=== PATIENT | male | born 1960 | race Caucasian/White ===

== ENCOUNTER 2020-08-01 21:11 | Inpatient (IN) | payer MEDICARE, MEDICAID, SELFPAY ==
--- NOTE | ~2020-08-01 | US_ITS ---
EXAMINATION: US pelvic complete DATE: 08/05/2020 08:29 INDICATION: Suprapubic swelling after catheter removal. TECHNIQUE: Multiple grayscale and Doppler ultrasound images of the pelvis were obtained. COMPARISON: CT abdomen and pelvis 08/01/2020 FINDINGS: The bladder is markedly distended. There is no abnormal mass. The anterior body wall is nor mal. IMPRESSION: 1. Markedly distended bladder. Reviewed, dictated and finalized at location B. AL NURSE
--- NOTE | ~2020-08-01 | XR_ITS ---
EXAMINATION: XR chest 1V portable DATE: 08/02/2020 00:01 INDICATION: Shortness of breath. TECHNIQUE: A single frontal view of the chest was obtained. COMPARISON: Chest 2 views 09/16/2016, chest CT 10/04/2016 FINDINGS: The lungs are hyperexpanded, consistent with emphysema. There are chronic nodules and airsp henrry opacities in the upper lobes, consistent with granulomatous disease. There are worsened airspace opacities in left mid and upper lung zones. No pleural effusion or pneumothorax. The heart size is no rmal. Calcified mediastinal lymph nodes are consistent with old granulomatous disease. There are old right-sided rib fractures. IMPRESSION: 1. Worsened airspace opacities in left mid and upper lung zones, consistent with pneumonia. 2. Emphysema. Reviewed, dictated and finalized at location A. GENERATOR OPERATOR IMPRESSION: 1. Worsened airspace opacities in left mid and upper lung zones, consistent wit h pneumonia. 2. Emphysema.
--- NOTE | ~2020-08-01 | CT_ITS ---
EXAMINATION: CT abdomen pelvis wo con DATE: 08/01/2020 23:24 INDICATION: Abdominal pain. TECHNIQUE: Computed tomography (CT) of the abdomen and pelvis was performed without intravenous contr ast. Automated exposure control and iterative reconstruction technique were employed. The dose-length product was 187.10 mGy-cm. COMPARISON: CT abdomen and pelvis 03/28/2008, chest CT 10/04/2016 FINDINGS: The visualized portions of the lung bases demonstrate emphysema. There are centrilobular no dules and tree-in-bud opacities in the right middle lobe, and lower lobes. There are airspace opaciti es and nodules in lingula. These findings are consistent with pneumonia. No pleural effusion. The hea rt size is normal. No pericardial effusion. There are coronary artery calcifications. The liver, gall bladder, spleen, pancreas, adrenal glands, and kidneys are normal. The bladder is markedly distended. There are no dilated loops of bowel. The appendix is not visualized. There are no pathologically enl arged lymph nodes. There is no free intraperitoneal fluid. There is a benign bone island in left isch ium. There is mild thoracolumbar spondylosis. There is mild chronic height loss of multiple vertebral bodies. IMPRESSION: 1. Multifocal pneumonia. 2. Emphysema. 3. Markedly distended bladder. Reviewed, dictated and finalized at location A. TROPLATER AUTOMATIC
--- NOTE | ~2020-08-01 | CT_ITS ---
EXAMINATION: CTA chest PE protocol DATE: 08/03/2020 10:52 INDICATION: Shortness of breath. TECHNIQUE: Computed tomography angiography (CTA) of the chest was performed with 100 mL Omnipaque-350 intravenous contrast timed to evaluate the pulmonary arteries. Coronal maximum intensity projection 3D-reconstructions were created by the technologist. Automated exposure control and iterative reconst ruction technique were employed. The dose-length product was 353.25 mGy-cm. COMPARISON: Chest CT 10/04/2016 FINDINGS: There is moderate emphysema. Calcified pulmonary nodules and calcified right hilar and medi astinal lymph nodes are consistent with old granulomatous disease. There are airspace and groundglass opacities in left upper lobe. There is a large area of cavitation in left upper lobe with worsening from 10/04/2016. There is a thick-walled cavitary nodule in right upper lobe. There are a few nodules in right upper lobe and right middle lobe. There are nodules and patchy groundglass opacities in the lower lobes. There are patchy airspace opacities in left lower lobe. There are small pleural effusion s. The heart size is normal. There are coronary artery calcifications. No pericardial effusion. The c entral pulmonary arteries are enlarged, consistent with pulmonary arterial hypertension. There is no pulmonary embolus. There is mild thoracic spondylosis. IMPRESSION: 1. No pulmonary embolus. 2. Multifocal pneumonia with worsened large area of chronic cavitation in left upper lobe. 3. Small pleural effusions. 4. Moderate emphysema. Reviewed, dictated and finalized at location B. GRITY MANAGER
--- NOTE | ~2020-08-01 | US_ITS ---
EXAMINATION: US scrotum doppler EXAM DATE: 08/05/2020 08:29 INDICATION: Scrotal swelling TECHNIQUE: Multiple grayscale and Doppler images of the testicles and scrotum were obtained bilateral ly. There is no prior study for comparison. FINDINGS: There is scrotal edema. Right testicle measures 4.8 x 3.1 x 3.1 cm and is morphologically normal. Low resistance Doppler alma w confirmed. The epididymis is unremarkable. Small varicocele. Left testicle measures 4.4 x 3.5 x 2.8 cm and is morphologically normal. Low resistance Doppler flow confirmed. The epididymis is unremarkable. Small left hydrocele. Small varicocele. IMPRESSION: 1. Small left hydrocele. 2. Small bilateral varicoceles. 3. Scrotal edema. Reviewed, dictated and finalized at location A. TRONEURODIAGNOSTIC TECHNOLOGIST
--- NOTE | ~2020-08-01 | US_ITS ---
EXAMINATION: US venous doppler LE RT EXAM DATE: 08/03/2020 10:51 INDICATION: Right leg pain, elevated d-dimer. TECHNIQUE: Multiple grayscale, color flow and Doppler images of the right lower extremity deep venous system were obtained and reviewed. There is no prior study for comparison. FINDINGS: The right common femoral, femoral and profunda veins demonstrate normal color flow, respira tory variation, augmentation and compressibility. Compressibility, color flow confirmed within the r ight popliteal, posterior tibial, peroneal, and greater saphenous veins. IMPRESSION: 1. No right lower extremity deep venous thrombosis. Reviewed, dictated and finalized at location A. NCIAL PROCESSING CLERK
[2020-08-01 23:00] VITALS: BP 132/73; PULSE 90; RESP 18; TEMP 36.6; O2SAT 98
[2020-08-01 23:43] LABS: Add Urine Microscopic? NO; Appearance Urine Clear (Clear); Basophils Absolute Auto 0.04 K/mm3 (0.00-0.10); Basophils Percent Auto 0.2 % (0.0-1.0); Bilirubin Urine Negative (Negative); Blood Urine Negative (Negative); Color Urine Yellow (Yellow); Eosinophils Absolute Auto 0.02 K/mm3 (0.02-0.50); Eosinophils Percent Auto 0.1 % (1.0-6.0); Glucose Urine UA Negative (Negative); Hemoglobin 11.8 g/dL (14.0-18.0); Immature Granulocyte Percent A 0.5 % (0.0-0.0); Ketones Urine Negative (Negative); Leukocyte Esterase Ur Negative (Negative); Lymphocytes Absolute Auto 0.89 K/mm3 (1.10-4.50); Lymphocytes Percent Auto 4.7 % (18.0-42.0); Mean Corpuscular HGB Conc 31.9 g/dL (32.0-36.0); Mean Corpuscular Hemoglobin 31.1 pg (27.0-31.0); Mean Corpuscular Volume 97.4 fL (78.0-102.0); Mean Platelet Volume 9.6 fl (8.7-11.0); Monocytes Absolute Auto 1.82 K/mm3 (0.10-0.90); Monocytes Percent Auto 9.5 % (2.0-11.0); Neutrophils Absolute Auto 16.2 K/mm3 (1.7-7.2); Nitrate Urine Negative (Negative); Platelet Count Result 431 K/mm3 (150-420); Protein Urine Negative (Negative); Red Cell Distribution Width 13.1 % (11.6-14.4); Specific Grav Ur 1.025 (1.010-1.020); White Blood Count 19.1 K/mm3 (4.8-10.8)
[2020-08-01 23:58] LABS: Alanine Aminotransferase 14 U/L (16-63); Albumin Level 2.8 g/dL (3.4-5.0); Alkaline Phosphatase 76 U/L (46-116); Anion Gap 6 mmol/L (8-16); Aspartate Amino Transferase 16 U/L (15-37); Bilirubin,Total 0.3 mg/dL (0.00-1.00); Blood Urea Nitrogen 19 mg/dL (7-18); Calcium 8.9 mg/dL (8.5-10.1); Carbon Dioxide 33 mmol/L (21-32); Chloride 97 mmol/L (98-108); Estimated Glomerular Filt Rate > 60; Glucose 103 mg/dL (70-99); Osmolality Calculated 284 mOsm/kg (285-295); Potassium 3.7 mmol/L (3.5-5.1); Sodium 136 mmol/L (136-145); Total Protein 7.2 g/dL (6.4-8.2)
[2020-08-02] VITALS (7 sets, daily range): BP systolic 90–115; BP diastolic 55–64; PULSE 68–86; RESP 16–18; TEMP 36.6–37.3; O2SAT 92–100; BMI 13.4
[2020-08-02 00:05] LABS: Lactic Acid Reflex 1.1 mmol/L (0.4-2.0)
--- NOTE | 2020-08-02 00:18 | ED.ABDPAIN ---
HPI - Abdominal Pain General Chief Complaint: Abdominal Pain Stated Complaint: Leg swollen can't not pee Source: patient Mode of arrival: ambulatory History of Present Illness HPI narrative: This is a 59-year-old gentleman presents with difficulty with urination patient has a history of BPH symptoms started 1 to 2 days ago and intensified over the last couple of hours. The patient has some suprapubic discomfort with no flank pain currently no fever or chills, is having constipation with no chest pain currently no shortness of breath no nausea or vomiting. Patient has a history of hypertension, COPD is a current smoker. MD elicited complaint: abdominal pain Pertinent past history: constipation Onset (ago): hour(s) Pain Consistency: constant Location: suprapubic Severity: moderate Pain scale (0-10): 6 Quality: fullness Radiation: none Migration to: no migration Exacerbating factors: nothing Relieving factors: nothing Related Data Home Medications Medication Instructions Recorded Confirmed diltiazem HCl 120 mg PO DAILY 08/01/20 08/01/20 ergocalciferol (vitamin D2) 50,000 unit PO MONTHLY 08/01/20 08/01/20 [Vitamin D2] famotidine 20 mg PO DAILY 08/01/20 08/01/20 fluticasone propion-salmeterol 1 ea INHALATION BID 08/01/20 08/01/20 [Advair Diskus] hydrocodone-acetaminophen 1 tablet PO PRN PRN 08/01/20 08/01/20 montelukast 10 mg PO DAILY 08/01/20 08/01/20 omeprazole 20 mg PO DAILY 08/01/20 08/01/20 prednisone 2.5 mg PO DAILY 08/01/20 08/01/20 tamsulosin 0.4 mg PO DAILY 08/01/20 08/01/20 theophylline 400 mg PO DAILY 08/01/20 08/01/20 tiotropium bromide [Spiriva with 1 cap INHALATION DAILY 08/01/20 08/01/20 HandiHaler] Allergies Allergy/AdvReac Type Severity Reaction Status Date / Time No Known Allergies Allergy Verified 08/01/20 23:56 Review of Systems Review of Systems: All systems reviewed & are unremarkable except as noted in HPI and below PMFSH Past Medical History Medical History COPD (chronic obstructive pulmonary disease) HTN (hypertension) Exam Const: General: no acute distress Orientation/consciousness: patient oriented x3 HENMT: Head: normal to inspection Eyes: Conjunctivae: conjunctivae normal Pupils: Equal, round and reactive pupils present EOM: EOMs intact bilaterally Direct Ophthalmoscopy: no photophobia Neck: Neck: normal visual inspection Chest: Chest palpation & inspection: normal inspection of the chest Resp: Effort & Inspection: normal respiratory effort Auscultation: diminished lung sounds Cardio: Rate: regular rate Rhythm: regular rhythm GI: GI Palp: Yes Soft to palpation Auscultation: normal bowel sounds : Other: suprapubic tender Back/Spine/Pelvis: Back: no CVA tenderness Skin: General skin exam: normal color Rashes: no rashes Neuro: General: patient oriented x3, moves all extremities, no meningeal signs and no focal motor deficits Extrem: General: normal to inspection and edema Psych: Mental Status: mental status grossly normal Course Course Emergency Course: reassessment of patient had to place a Fernández since patient had a distended bladder and was a having difficulty passing urine for urinary obstruction /bladder obstruction. MDM - Abdominal Pain Lab Data Result diagrams: 08/01/20 23:26 08/01/20 23:26 Labs: Lab Results 08/01/20 08/01/20 08/01/20 Range/Units 23:26 23:26 23:26 WBC 19.1 H (4.8-10.8) K/mm3 RBC 3.80 L (4.70-6.10) M/mm3 Hgb 11.8 L (14.0-18.0) g/dL Hct 37.0 L (40.0-54.0) % MCV 97.4 (78.0-102.0) fL MCH 31.1 H (27.0-31.0) pg MCHC 31.9 L (32.0-36.0) g/dL RDW 13.1 (11.6-14.4) % Plt Count 431 H (150-420) K/mm3 MPV 9.6 (8.7-11.0) fl Immature Gran % (Auto) 0.5 H (0.0-0.0) % Neut % (Auto) 85.0 H (50.0-70.0) % Lymph % (Auto) 4.7 L (18.0-42.0) % Whitman % (Auto) 9.5 (2.0-11.0) % Eos
[2020-08-02] MEDS: KETOROLAC 30 MG/ML VIAL (*BKC) IV PUSH (00:49)
--- NOTE | 2020-08-02 01:42 | ADMGEN ---
This patient, Thang Paul, was admitted to 2nd Floor Room 208-1. Patient oriented to hospital policies and general routines including ID bracelet, bed and alarms, visiting hours, pain management, procedures, bathroom and other care routines, personal items, smoking policy, room service/diet, and visiting hours. Information on how to activate the Rapid Response Team has been discussed. Patient are encouraged to report perceived risks to care and to ask questions if they do not understand what they are told or what they should do.
[2020-08-02] MEDS: HYDROcodone/acetaminophen (*CRX) 10-325 MG TABLET 1 TAB PO ×4 (05:29→21:34)
[2020-08-02 05:35] LABS: Basophils Absolute Auto 0.06 K/mm3 (0.00-0.10); Basophils Percent Auto 0.4 % (0.0-1.0); Eosinophils Absolute Auto 0.07 K/mm3 (0.02-0.50); Eosinophils Percent Auto 0.4 % (1.0-6.0); Hematocrit 31.1 % (40.0-54.0); Hemoglobin 9.8 g/dL (14.0-18.0); Immature Granulocyte Absolute 0.09 K/mm3 (0.00-0.00); Immature Granulocyte Percent A 0.5 % (0.0-0.0); Lymphocytes Absolute Auto 0.83 K/mm3 (1.10-4.50); Mean Corpuscular HGB Conc 31.5 g/dL (32.0-36.0); Mean Corpuscular Hemoglobin 30.5 pg (27.0-31.0); Mean Corpuscular Volume 96.9 fL (78.0-102.0); Mean Platelet Volume 9.1 fl (8.7-11.0); Monocytes Percent Auto 10.9 % (2.0-11.0); Neutrophils Absolute Auto 13.6 K/mm3 (1.7-7.2); Neutrophils Percent Auto 82.8 % (50.0-70.0); Platelet Count Result 348 K/mm3 (150-420); Red Blood Count 3.21 M/mm3 (4.70-6.10); Red Cell Distribution Width 13.1 % (11.6-14.4); White Blood Count 16.5 K/mm3 (4.8-10.8)
[2020-08-02 05:50] LABS: Alanine Aminotransferase 11 U/L (16-63); Albumin Level 2.3 g/dL (3.4-5.0); Alkaline Phosphatase 62 U/L (46-116); Anion Gap 3 mmol/L (8-16); Aspartate Amino Transferase 14 U/L (15-37); Bilirubin,Total 0.2 mg/dL (0.00-1.00); Blood Urea Nitrogen 14 mg/dL (7-18); Calcium 8.4 mg/dL (8.5-10.1); Carbon Dioxide 34 mmol/L (21-32); Chloride 98 mmol/L (98-108); Estimated CRCL calculation 102 ml/min; Estimated Glomerular Filt Rate > 60; Glucose 95 mg/dL (70-99); Magnesium 1.8 mg/dL (1.8-2.4); Osmolality Calculated 280 mOsm/kg (285-295); Potassium 3.4 mmol/L (3.5-5.1); Sodium 135 mmol/L (136-145); Total Protein 5.9 g/dL (6.4-8.2)
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
[2020-08-02] MEDS: POTASSIUM CHLORIDE 20 MEQ TABLET 40 MEQ PO (08:27)
[2020-08-02] MEDS: MONTELUKAST SODIUM 10 MG TABLET PO (08:27)
[2020-08-02] MEDS: TAMSULOSIN HCL 0.4 MG CAPSULE 0.8 MG PO (08:27)
[2020-08-02] MEDS: PANTOPRAZOLE 40 MG TABLET PO (08:27)
[2020-08-02] MEDS: predniSONE 5 MG TABLET PO (08:27)
[2020-08-02] MEDS: THEOPHYLLINE ANHYDROUS 100 MG CAP.ER.24H 400 MG PO (08:28)
[2020-08-02] MEDS: SALMET XINAFT/FLUTIC PROPIN 500 MCG/50 MCG INH CAP 1 PUFF INHALATION ×2 (08:40→16:46)
--- NOTE | 2020-08-02 13:44 | PC.NURSE ---
Anne-Marie CHIEF COUNSEL informed of decreased urine output. Bladder scan and IV fluids ordered.
[2020-08-02] MEDS: SODIUM CHLORIDE 0.9% IV 1,000 ML 100 ML IV CONT ×2 (14:00→23:20)
[2020-08-02 14:47] LABS: Hematocrit 31.6 % (40.0-54.0); Hemoglobin 9.8 g/dL (14.0-18.0); Mean Corpuscular Hemoglobin 30.9 pg (27.0-31.0); Mean Corpuscular Volume 99.7 fL (78.0-102.0); Mean Platelet Volume 9.3 fl (8.7-11.0); Platelet Count Result 362 K/mm3 (150-420); Red Blood Count 3.17 M/mm3 (4.70-6.10); Red Cell Distribution Width 13.1 % (11.6-14.4)
[2020-08-02] MEDS: PHARMACIST COMMUNICATION ORDER 1 EACH XX (15:04)
[2020-08-02 15:09] LABS: BNP 54.7 pg/mL (0-100)
[2020-08-02] MEDS: ENOXAPARIN 40 MG/0.4 ML SYRINGE SUB-Q (16:46)
[2020-08-02] MEDS: SENNA/DOCUSATE SODIUM TABLET 1 TAB PO (21:55)
[2020-08-03] MEDS: HYDROcodone/acetaminophen (*CRX) 10-325 MG TABLET 1 TAB PO ×3 (03:33→21:01)
[2020-08-03] MEDS: ENOXAPARIN 40 MG/0.4 ML SYRINGE SUB-Q ×2 (03:44→16:38)
[2020-08-03] MEDS: LORazepam (*CRX) 0.5 MG TABLET PO ×2 (04:42→21:02)
--- NOTE | 2020-08-03 04:50 | PC.NURSE ---
Patient very anxious, saying he can't breathe. SpO2 @ 95% on O2 @ 2.5 lpm/nc. Color good. Patient has had nurse in his room every 10 minutes for past hour and a half to move him a little this way or that, straighten his blankets or pillow, raise him up in bed, raise the head of his bed, pull gown so it's looser around him and multiple other things. Patient was given PRN [place]ior @ 0333 for complaint of pain 8 on 0-10 scale but says pain is much better now. Patient given PRN Ativan for anxiety. Call light in reach.
[2020-08-03 05:33] LABS: Hematocrit 30.7 % (40.0-54.0); Hemoglobin 9.3 g/dL (14.0-18.0); Mean Corpuscular HGB Conc 30.3 g/dL (32.0-36.0); Mean Corpuscular Hemoglobin 30.6 pg (27.0-31.0); Mean Platelet Volume 9.2 fl (8.7-11.0); Platelet Count Result 350 K/mm3 (150-420); Red Blood Count 3.04 M/mm3 (4.70-6.10); Red Cell Distribution Width 13.2 % (11.6-14.4); White Blood Count 17.1 K/mm3 (4.8-10.8)
[2020-08-03 05:48] LABS: Alanine Aminotransferase 11 U/L (16-63); Alkaline Phosphatase 60 U/L (46-116); Anion Gap 1 mmol/L (8-16); Aspartate Amino Transferase 13 U/L (15-37); Bilirubin,Total 0.2 mg/dL (0.00-1.00); Blood Urea Nitrogen 10 mg/dL (7-18); Carbon Dioxide 36 mmol/L (21-32); Chloride 98 mmol/L (98-108); Estimated CRCL calculation 95 ml/min; Estimated Glomerular Filt Rate > 60; Glucose 90 mg/dL (70-99); Magnesium 1.6 mg/dL (1.8-2.4); Osmolality Calculated 279 mOsm/kg (285-295); Potassium 4.7 mmol/L (3.5-5.1); Sodium 135 mmol/L (136-145); Total Protein 5.5 g/dL (6.4-8.2)
[2020-08-03 07:58] VITALS: TEMP 37.8
[2020-08-03] MEDS: ACETAMINOPHEN 325 MG TABLET 650 MG PO (07:58)
[2020-08-03 08:00] VITALS: BP 132/66; PULSE 82; RESP 20; TEMP 37.8; O2SAT 92
[2020-08-03 08:18] LABS: BNP 159 pg/mL (0-100)
[2020-08-03] MEDS: MAGNESIUM SULF 4 GM/WATER100ML 4 GM/100 ML BAG IVPB (08:19)
[2020-08-03] MEDS: THEOPHYLLINE ANHYDROUS 100 MG CAP.ER.24H 400 MG PO (08:21)
[2020-08-03] MEDS: TAMSULOSIN HCL 0.4 MG CAPSULE 0.8 MG PO (08:21)
[2020-08-03] MEDS: DOCUSATE SODIUM 100 MG CAPSULE PO (08:22)
[2020-08-03] MEDS: predniSONE 5 MG TABLET PO (08:22)
[2020-08-03] MEDS: POTASSIUM CHLORIDE 20 MEQ TABLET 40 MEQ PO (08:22)
[2020-08-03] MEDS: PANTOPRAZOLE 40 MG TABLET PO (08:22)
[2020-08-03] MEDS: MONTELUKAST SODIUM 10 MG TABLET PO (08:22)
[2020-08-03] MEDS: SALMET XINAFT/FLUTIC PROPIN 500 MCG/50 MCG INH CAP 1 PUFF INHALATION ×2 (08:22→16:40)
[2020-08-03 09:23] LABS: Base Excess ABG 6.5 mmol/L (0-2); HCO3 ABG 33.9 mmol/L (23-29); Oxyhemoglobin 95.2 % (94-100); PCO2 ABG 65.1 mmHg (35-45); PO2 ABG 76.7 mmHg (80-90); Total Hemoglobin 10.4 g/dL; pH ABG 7.33 (7.35-7.45)
[2020-08-03 09:28] LABS: Device NASAL CANNULA; Liters per Minute 2.5 LPM; Modified Allen's Test Pass; Site Drawn LEFT RADIAL
[2020-08-03] MEDS: SODIUM CHLORIDE 0.9% IV 1,000 ML 100 ML IV CONT ×2 (09:40→20:57)
--- NOTE | 2020-08-03 14:38 | P.PN_ITS ---
Progress Note: A&P Assessment and Plan (1) Bladder outflow obstruction: Code(s): N32.0 - Bladder-neck obstruction <Leonor PandeyHAYLIE - Last Filed: 08/03/20 14:56> Status: Acute <Leonor PandeyHAYLIE - Last Filed: 08/03/20 14:56> Assessment and Plan: * patient on Flomax 0.4 increased to 0.8 * conteh placed * CT indicates markedly distended bladder * Will complete future voiding trial <Leonor SamuelJoanna DannieHAYLIE - Last Filed: 08/03/20 14:56> (2) Pneumonia: Qualifiers: Laterality: left Lung location: unspecified part of lung Pneumonia type: due to unspecified organism Qualified Code(s): J18.9 - Pneumonia, unspecified organism <Leonor PandeyHAYLIE - Last Filed: 08/03/20 14:56> Code(s): J18.9 - Pneumonia, unspecified organism <Leonor SamuelHAYLIE Ruiz - Last Filed: 08/03/20 14:56> Status: Acute <Leonor Pandey TYLERXimena - Last Filed: 08/03/20 14:56> Assessment and Plan: * WBCs elevated but improving * Chest x-ray indicates Worsened airspace opacities in left mid and upper lung zones, consistent with pneumonia. * CT indicates multifocal pneumonia with emphysema , CTA indicate worsening pneumonia * Continue Rocephin and azithromycin day 2 <Leonor SamuelHAYLIE Ruiz - Last Filed : 08/03/20 14:56> (3) COPD (chronic obstructive pulmonary disease): Qualifiers: COPD type: unspecified COPD Qualified Code(s): J44.9 - Chronic obstructive pulmonary disease, unspecified <Leonor Pandey MINE MANAGER-C - Last Filed: 08/03/20 14:56> Code(s): J44.9 - Chronic obstructive pulmonary disease, unspecified <Leonor SamuelHAYLIE Ruiz - Last Filed: 08/03/20 14:56> Status: Acute <Leonor PandeyHAYLIE - Last Filed: 08/03/20 14:56> Assessment and Plan: * Stable * Continue antibiotics with steroids and inhalers * Continue 3 L nasal cannula continuously <HAYLIE Gonzales - Last Filed: 08/03/20 14:56> (4) HTN (hypertension): Code(s): I10 - Essential (primary) hypertension <HAYLIE Gonzales - Last Filed: 08/03/20 14:56> Status: Acute <HAYLIE Gonzales - Last Filed: 08/03/20 14:56> Assessment and Plan: * Blood pressure stable * Continue Cardizem 120 mg daily <HAYLIE Gonzales - Last Filed: 08/03/20 14:56> (5) Malnutrition: Code(s): E46 - Unspecified protein-calorie malnutrition <HAYLIE Gonzales - Last Filed: 08/03/20 14:56> Status: Acute <HAYLIE Gonzales - Last Filed: 08/03/20 14:56> Assessment and Plan: * Consulted case coordination * Added Ensure * Patient will benefit from penitentiary placement probably refused. If he refuses will discharge patient home with PT/OT and home health <HAYLIE Gonzales - Last Filed: 08/03/20 14:56> (6) Swelling of lower extremity: Code(s): M79.89 - Other specified soft tissue disorders <Leonor Pandey HAYLIE - Last Filed: 08/03/20 14:56> Status: Acute <Leonor Pandey HAYLIE - Last Filed: 08/03/20 14:56> Assessment and Plan: * Chronic * D-dimer elevated negative for PE Doppler negative for DVT * <Leonor Pandey HAYLIE - Last Filed: 08/03/20 14:56> (7) Mass of face: Code(s): R22.0 - Localized swelling, mass and lump, head <Leonor Pandey HAYLIE - Last Filed: 08/03/20 14:56> Status: Acute <Leonor Pandey HAYLIE - Last Filed: 08/03/20 14:56> Assessment and Plan: * Patient has mass to left side of face lateral to left eye
--- NOTE | 2020-08-03 14:38 | WPDPN ---
Progress Note: A&P Assessment and Plan (1) Bladder outflow obstruction: Code(s): N32.0 - Bladder-neck obstruction <HAYLIE Gonzales - Last Filed: 08/03/20 14:56> Status: Acute <HAYLIE Gonzales - Last Filed: 08/03/20 14:56> Assessment and Plan: patient on Flomax 0.4 increased to 0.[address] indicates markedly distended bladder Will complete future voiding trial <HAYLIE Gonzales - Last Filed: 08/03/20 14:56> (2) Pneumonia: Qualifiers: Laterality: left Lung location: unspecified part of lung Pneumonia type: due to unspecified organism Qualified Code(s): J18.9 - Pneumonia, unspecified organism <HAYLIE Gonzales - Last Filed: 08/03/20 14:56> Code(s): J18.9 - Pneumonia, unspecified organism <HAYLIE Gonzales - Last Filed: 08/03/20 14:56> Status: Acute <HAYLIE Gonzales - Last Filed: 08/03/20 14:56> Assessment and Plan: WBCs elevated but improving Chest x-ray indicates Worsened airspace opacities in left mid and upper lung zones, consistent with pneumonia. CT indicates multifocal pneumonia with emphysema , CTA indicate worsening pneumonia Continue Rocephin and azithromycin day 2 <HAYLIE Gonzales - Last Filed: 08/03/20 14:56> (3) COPD (chronic obstructive pulmonary disease): Qualifiers: COPD type: unspecified COPD Qualified Code(s): J44.9 - Chronic obstructive pulmonary disease, unspecified <HAYLIE Gonzales - Last Filed: 08/03/20 14:56> Code(s): J44.9 - Chronic obstructive pulmonary disease, unspecified <HAYLIE Gonzales - Last Filed: 08/03/20 14:56> Status: Acute <HAYLIE Gonzales - Last Filed: 08/03/20 14:56> Assessment and Plan: Stable Continue antibiotics with steroids and inhalers Continue 3 L nasal cannula continuously <CECILIA Gonzales-C - Last Filed: 08/03/20 14:56> (4) HTN (hypertension): Code(s): I10 - Essential (primary) hypertension <Leonor Allison HAYLIE Pandey - Last Filed: 08/03/20 14:56> Status: Acute <Leonor PandeyCECILIANicolasXimena - Last Filed: 08/03/20 14:56> Assessment and Plan: Blood pressure stable Continue Cardizem 120 mg daily <Leonor SamuelCECILIA RuizNicolasXimena - Last Filed: 08/03/20 14:56> (5) Malnutrition: Code(s): E46 - Unspecified protein-calorie malnutrition <Cameronrosio JimmieHAYLIE Ruiz - Last Filed: 08/03/20 14:56> Status: Acute <Leonor Allison CECILIA PandeyNicolasXimena - Last Filed: 08/03/20 14:56> Assessment and Plan: Consulted case coordination Added Ensure Patient will benefit from custodial placement probably refused. If he refuses will discharge patient home with PT/OT and home health <Leonor SamuelHAYLIE Ruiz - Last Filed: 08/03/20 14:56> (6) Swelling of lower extremity: Code(s): M79.89 - Other specified soft tissue disorders <Cameronrosio JimmieHAYLIE Ruiz - Last Filed: 08/03/20 14:56> Status: Acute <Leonor PandeyCECILIANicolasXimena - Last Filed: 08/03/20 14:56> Assessment and Plan: Chronic D-dimer elevated negative for PE Doppler negative for DVT <Leonor JimmieHAYLIE Ruiz - Last Filed: 08/03/20 14:56> (7) Mass of face: Code(s): R22.0 - Localized swelling, mass and lump, head <HAYLIE Gonzales - Last Filed: 08/03/20 14:56> Status: Acute <Cameronrosio Estefany HAYLIE Pandey Last Filed: 08/03/20 14:56> Assessment and Plan: Patient has mass to left side of face lateral to left eye Patient refused past treatment. Will need to follow-up with primary care physician <HAYLIE Gonzales - Last Filed: 08/03/20 14:56> (8) Respiratory acidosis: Code(s): E87.2 - Acidosis <HAYLIE Gonzales - Last Filed: 08/03/20 14:56> Status: Acute <HAYLIE Gonzalse - Last Filed: 08/03/20 14:56> Review of Systems Rev
[2020-08-03 16:00] VITALS: BP 122/64; PULSE 78; RESP 20; TEMP 37.7; O2SAT 95
[2020-08-03] MEDS: methylPREDNISolone SOD SUCC 125 MG VIAL IV PUSH ×2 (16:39→21:22)
--- NOTE | 2020-08-03 17:29 | PCPTNOTE ---
Attempted to see patient but sleeping sound. After finally his eyes open he did not want to participate in therapy in the afternoon due to exhaustion from the days activities. Pt states that he will attempt again in the am.
[2020-08-03 20:00] VITALS: PULSE 80; RESP 18; O2SAT 93
[2020-08-03] MEDS: SENNA/DOCUSATE SODIUM TABLET 1 TAB PO (20:56)
[2020-08-04] VITALS (7 sets, daily range): BP systolic 114–142; BP diastolic 60–79; PULSE 64–86; RESP 18–22; TEMP 36.1–36.6; O2SAT 95–100
[2020-08-04] MEDS: ENOXAPARIN 40 MG/0.4 ML SYRINGE SUB-Q (03:02)
[2020-08-04] MEDS: HYDROcodone/acetaminophen (*CRX) 10-325 MG TABLET 1 TAB PO ×3 (05:11→22:33)
[2020-08-04] MEDS: methylPREDNISolone SOD SUCC 125 MG VIAL IV PUSH (05:12)
[2020-08-04] MEDS: SODIUM CHLORIDE 0.9% IV 1,000 ML 100 ML IV CONT ×2 (05:12→16:50)
[2020-08-04 05:50] LABS: Hematocrit 31.5 % (40.0-54.0); Hemoglobin 9.4 g/dL (14.0-18.0); Mean Corpuscular HGB Conc 29.8 g/dL (32.0-36.0); Mean Corpuscular Hemoglobin 30.5 pg (27.0-31.0); Mean Corpuscular Volume 102.3 fL (78.0-102.0); Mean Platelet Volume 9.7 fl (8.7-11.0); Platelet Count Result 367 K/mm3 (150-420); Red Blood Count 3.08 M/mm3 (4.70-6.10); Red Cell Distribution Width 13.1 % (11.6-14.4); White Blood Count 15.3 K/mm3 (4.8-10.8)
[2020-08-04 06:11] LABS: Alanine Aminotransferase 11 U/L (16-63); Albumin Level 1.9 g/dL (3.4-5.0); Alkaline Phosphatase 65 U/L (46-116); Anion Gap 1 mmol/L (8-16); Aspartate Amino Transferase 14 U/L (15-37); Bilirubin,Total 0.1 mg/dL (0.00-1.00); Blood Urea Nitrogen 10 mg/dL (7-18); Calcium 8.4 mg/dL (8.5-10.1); Carbon Dioxide 38 mmol/L (21-32); Chloride 100 mmol/L (98-108); Estimated CRCL calculation 107 ml/min; Estimated Glomerular Filt Rate > 60; Glucose 132 mg/dL (70-99); Magnesium 2.1 mg/dL (1.8-2.4); Osmolality Calculated 289 mOsm/kg (285-295); Sodium 139 mmol/L (136-145); Total Protein 5.2 g/dL (6.4-8.2)
[2020-08-04 06:18] LABS: Lactic Acid Reflex 1.3 mmol/L (0.4-2.0)
[2020-08-04 06:26] LABS: CRP 18.5 mg/dL (0.0-0.9)
[2020-08-04] MEDS: POTASSIUM CHLORIDE 20 MEQ TABLET 40 MEQ PO (08:40)
[2020-08-04] MEDS: TAMSULOSIN HCL 0.4 MG CAPSULE 0.8 MG PO (08:40)
[2020-08-04] MEDS: DOCUSATE SODIUM 100 MG CAPSULE PO (08:40)
[2020-08-04] MEDS: PANTOPRAZOLE 40 MG TABLET PO (08:40)
[2020-08-04] MEDS: THEOPHYLLINE ANHYDROUS 100 MG CAP.ER.24H 400 MG PO (08:41)
[2020-08-04] MEDS: predniSONE 5 MG TABLET PO (08:41)
[2020-08-04] MEDS: SALMET XINAFT/FLUTIC PROPIN 500 MCG/50 MCG INH CAP 1 PUFF INHALATION ×2 (08:42→16:49)
[2020-08-04 11:34] LABS: Occult Blood Negative (Negative)
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
[2020-08-04] MEDS: IPRATROPIUM 0.5 MG/ALBUTEROL SULFATE 2.5 MG AMPUL.NEB 3 ML INHALATION (13:14)
[2020-08-04] MEDS: MONTELUKAST SODIUM 10 MG TABLET PO (16:48)
[2020-08-04] MEDS: methylPREDNISolone SOD SUCC 40 MG VIAL IV PUSH (16:49)
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
--- NOTE | 2020-08-04 17:05 | PC.NURSE ---
pt scrotum noted to be swollen, about the size of a softball. pt c/o discomfort to the area. Charge nurse notified.
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
[2020-08-04] MEDS: LORazepam (*CRX) 0.5 MG TABLET PO (20:57)
--- NOTE | 2020-08-04 21:12 | PC.NURSE ---
Patient noted to have ulcerations to bilateral posterior hips. wounds were cleansed with soap and water and duoderm dressing was applied. Patient states that they are from sitting on the toilet at home.
--- NOTE | 2020-08-05 00:11 | PC.NURSE ---
Patient refusing scrotal elevation.
[2020-08-05] MEDS: SODIUM CHLORIDE 0.9% IV 1,000 ML 100 ML IV CONT (03:02)
[2020-08-05 05:56] LABS: Base Excess ABG 9.3 mmol/L (0-2); HCO3 ABG 35.8 mmol/L (23-29); Oxygen Content ABG 14.3 %vol (16.0-22.0); Oxyhemoglobin 96.4 % (94-100); PCO2 ABG 59.2 mmHg (35-45); PO2 ABG 84.2 mmHg (80-90); Total Hemoglobin 10.5 g/dL
[2020-08-05 05:58] LABS: Hematocrit 30.3 % (40.0-54.0); Hemoglobin 9.2 g/dL (14.0-18.0); Mean Corpuscular HGB Conc 30.4 g/dL (32.0-36.0); Mean Corpuscular Hemoglobin 30.9 pg (27.0-31.0); Mean Corpuscular Volume 101.7 fL (78.0-102.0); Mean Platelet Volume 9.3 fl (8.7-11.0); Platelet Count Result 380 K/mm3 (150-420); Red Blood Count 2.98 M/mm3 (4.70-6.10)
[2020-08-05 06:08] LABS: Anion Gap 3 mmol/L (8-16); Blood Urea Nitrogen 8 mg/dL (7-18); Calcium 7.8 mg/dL (8.5-10.1); Carbon Dioxide 34 mmol/L (21-32); Chloride 104 mmol/L (98-108); Estimated CRCL calculation 113 ml/min; Estimated Glomerular Filt Rate > 60; Glucose 112 mg/dL (70-99); Osmolality Calculated 291 mOsm/kg (285-295); Potassium 4.2 mmol/L (3.5-5.1); Sodium 141 mmol/L (136-145)
[2020-08-05 06:10] LABS: Device ROOM AIR; Modified Allen's Test Pass; Site Drawn LEFT RADIAL
[2020-08-05 06:14] LABS: White Blood Count 20.4 K/mm3 (4.8-10.8)
--- NOTE | 2020-08-05 06:14 | PC.NURSE ---
Lab called to report a critical WBC value of 20.4.
--- NOTE | 2020-08-05 06:16 | PC.NURSE ---
Dr. Penny notified of pt's critical WBC od 20.4; No new orders at this time.
[2020-08-05] MEDS: HYDROcodone/acetaminophen (*CRX) 10-325 MG TABLET 1 TAB PO ×2 (07:57→13:07)
[2020-08-05 08:00] VITALS: BP 138/71; PULSE 68; RESP 18; TEMP 36.2; O2SAT 95
[2020-08-05] MEDS: SALMET XINAFT/FLUTIC PROPIN 500 MCG/50 MCG INH CAP 1 PUFF INHALATION (09:53)
[2020-08-05] MEDS: methylPREDNISolone SOD SUCC 40 MG VIAL IV PUSH (09:53)
[2020-08-05] MEDS: POTASSIUM CHLORIDE 20 MEQ TABLET 40 MEQ PO (09:54)
[2020-08-05] MEDS: TAMSULOSIN HCL 0.4 MG CAPSULE 0.8 MG PO (09:54)
[2020-08-05] MEDS: THEOPHYLLINE ANHYDROUS 100 MG CAP.ER.24H 400 MG PO (09:54)
[2020-08-05] MEDS: PANTOPRAZOLE 40 MG TABLET PO (09:54)
[2020-08-05] MEDS: DOCUSATE SODIUM 100 MG CAPSULE PO (09:54)
[2020-08-05] MEDS: IPRATROPIUM 0.5 MG/ALBUTEROL SULFATE 2.5 MG AMPUL.NEB 3 ML INHALATION (09:54)
[2020-08-05] MEDS: predniSONE 5 MG TABLET PO (09:54)
[2020-08-05] MEDS: ENOXAPARIN 40 MG/0.4 ML SYRINGE SUB-Q (10:18)
[2020-08-05] MEDS: LIDOCAINE HCL 2% GEL UROJET 10 ML PKG MUCOUS MEM (13:08)
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
--- NOTE | 2020-08-06 10:20 | PC.NURSE ---
Discharge call back completed. Pt voiced a couple of questions about his meds, questions answered. Pt stated nurse went over instructions but this morning he had some questions. Also states a nurse told him he was being mean and he didn't think he was. Sales Administration Specialist will discuss with nursing staff.
== END 2020-08-05 14:55 | disposition home health service (06) | DRG 194 ==
LOC: CHSED 08-02 00:26 → CHS2ND 08-02 15:37
PROVIDERS: Nurse Practitioner; Nurse Practitioner Family; Admitting Provider Emergency Medicine; Emergency Provider Emergency Medicine; PCP Internal Medicine; Visit Provider Emergency Medicine
DX: J18.9 Pneumonia, unspecified organism (principal); N13.8 Other obstructive and reflux uropathy; J44.0 Chronic obstructive pulmonary disease with (acute) lower respiratory infection; E46 Unspecified protein-calorie malnutrition; E87.2 Acidosis; N40.1 Benign prostatic hyperplasia with lower urinary tract symptoms; I10 Essential (primary) hypertension; K59.00 Constipation, unspecified; M79.89 Other specified soft tissue disorders; R22.0 Localized swelling, mass and lump, head; F17.210 Nicotine dependence, cigarettes, uncomplicated; Z99.81 Dependence on supplemental oxygen; Z87.828 Personal history of other (healed) physical injury and trauma
CPT/HCPCS: 36415; 36600; 71045; 71275; 74176; 76856; 76870; 80048; 80053; 81003; 82272; 82805; 83605; 83735; 83880; 85025; 85027; 85380; 86140; 86850; 86900; 86901; 87040; 87086; 87088; 93971; 93976; 94640; 97110; 97161; 97165; 97530; 97535; 99285; A9270; J0456; J0696; J1650; J1885; J2920; J2930; J3475; J7030; J7512; Q9965